=== PATIENT | female | born 1975 ===

== ENCOUNTER 2024-07-28 13:25 | Outpatient (CLI) | payer BC, SELFPAY ==
--- NOTE | 2024-07-28 13:40 | MM_ITS ---
WS: [id number] DIAGNOSTIC BILATERAL DIGITAL BREAST TOMOSYNTHESIS MAMMOGRAPHY WITH CAD Bilateral breast ultrasound, complete HISTORY: BREAST TENDERNESS bilateral breast tenderness is diffuse. COMPARISON: None available. TECHNIQUE: Bilateral craniocaudad, mediolateral oblique, and mediolateral views are submitted with tomosynthesis and SM. Computer aided detection utilized. Breast composition: The breasts are heterogeneously dense, which may obscure small masses. Dense asymmetric fibroglandular tissue within each breast. No suspicious masses or areas of increased density. No grouping of calcifications. No distortion or nipple retraction. Bilateral breast ultrasound, complete. No solid masses or areas of distortion or shadowing. There are a few scattered cysts throughout the RIGHT breast. Majority of the cysts are subcentimeter. Largest cyst at 10:00, 4 cm from the nipple measures 1.6 x 0.9 x 0.9 cm. MM/MM diag tomosynthesis [id number] IMPRESSION: BI-RADS: 2 - Benign FOLLOW UP: 1 Year Follow-up No mammographic or ultrasound significant abnormality. Benign cysts within the RIGHT breast.
== END 2024-07-28 13:26 | disposition home or self-care (01) ==
LOC: RAD 13:33
PROVIDERS: PCP Family Medicine; Visit Provider Family Medicine
DX: N64.4 Mastodynia (principal); R92.333 Mammographic heterogeneous density, bilateral breasts; R92.323 Mammographic fibroglandular density, bilateral breasts; N60.11 Diffuse cystic mastopathy of right breast
CPT/HCPCS: 76641; 77062; G0279